=== PATIENT | female | born 1965 | race Caucasian/White ===

== ENCOUNTER 2017-07-31 07:00 | Day surgery (SDC) | END 2017-07-31 13:30 | disposition home or self-care (01) ==

== ENCOUNTER 2017-09-16 17:01 | Observation (INO) | END 2017-09-18 19:05 | disposition home or self-care (01) ==

== ENCOUNTER 2017-11-23 13:28 | Observation (INO) | END 2017-11-25 16:33 | disposition home or self-care (01) ==